=== PATIENT | female | born 2005 | race African-American/Black ===

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

== ENCOUNTER 2025-03-29 18:16 | Emergency (ER) | payer OTHER ==
[2025-03-29 18:29] VITALS: BP 135/82; PULSE 115; RESP 20; TEMP 99.1; BMI 48.6
[2025-03-29 20:42] LABS: ABSOLUTE IMMATURE GRANULOCYTES 0.02 x10^3/uL (0.0-0.031); BASOPHILS # 0.02 x10^3/uL (0.01-0.08); EOSINOPHIL % 0.2 % (0.7-5.8); EOSINOPHILS # 0.01 x10^3/uL (0.04-0.36); HEMATOCRIT 31.8 % (34.1-44.9); HEMOGLOBIN 9.1 g/dL (11.2-15.7); MCHC 28.6 g/dl (32.2-35.5); MEAN PLT VOLUME 8.8 fl (9.4-12.3); MONOCYTE # 0.32 x10^3/uL (0.24-0.86); MONOCYTE % 4.9 % (4.7-12.5); PLATELET COUNT 525 x10^3/uL (182-369); RDW 18.4 % (12.0-16.2)
[2025-03-29 21:03] LABS: POTASSIUM 4.3 mmol/L (3.5-5.1)
[2025-03-29 21:13] LABS: CALCIUM 9.6 mg/dL (8.5-10.1)
[2025-03-29 21:14] LABS: ALBUMIN 3.5 g/dl (3.4-5.0); BLOOD UREA NITROGEN 7.7 mg/dL (7-18)
[2025-03-29 21:17] LABS: CREATININE 0.8 mg/dL (0.55-1.3)
[2025-03-29 21:18] LABS: TOT PROT 7.8 g/dl (6.4-8.2)
[2025-03-29 21:19] LABS: BILIRUBIN,TOTAL 0.4 mg/dL (0.2-1)
[2025-03-29 22:43] LABS: HCV DIAGNOSTIC IN-HOUSE W/RFLX NON-REACTIVE (NONREACTIVE)
[2025-03-29 22:44] LABS: HIV INTERPRETATION NEGATIVE (NEGATIVE)
== END 2025-03-29 22:24 | disposition home or self-care (01) ==
LOC: JER 18:16
DX: R20.2 Paresthesia of skin (principal); R51.9 Headache, unspecified; R20.0 Anesthesia of skin
CPT/HCPCS: 36415; 80053; 82607; 82746; 83735; 84443; 85025; 86803; 87389; 99283-25